=== PATIENT | female | born 1985 | race Caucasian/White ===

== ENCOUNTER 2024-09-22 09:41 | Outpatient (CLI) | payer OTHER, SELFPAY ==
[2024-09-22] VITALS (9 sets, daily range): BP systolic 118–142; BP diastolic 60–87; PULSE 62–78; O2SAT 98
[2024-09-22 10:15] LABS: Hematocrit 37.3 % (33.0-51.0); Hemoglobin* 12.6 gm/dL (12.0-16.0); Mean Corpuscular HGB Conc 34 gm/dL (32-36); Mean Corpuscular Hemoglobin 32 pg (26-34); Mean Corpuscular Volume 94 fL (80-100); Platelet Count* 198 K/uL (140-440); Red Blood Count 3.99 m/uL (4.00-5.20); White Blood Count* 9.77 K/uL (4.50-11.00)
[2024-09-22 10:16] LABS: Slide Review Reflex No
[2024-09-22 10:29] LABS: Alanine Aminotransferase* 13 U/L (4-35); Aspartate Amino Transferase* 19 U/L (12-35); Blood Urea Nitrogen* 8 mg/dL (5-24); Creatinine* 0.5 mg/dL (0.5-1.5); Estimated Glomerular Filt Rate 124 ml/min
[2024-09-22 10:39] LABS: Total Protein Urine 11 mg/dL
[2024-09-22 10:40] LABS: Creatinine Urine 71.4 mg/dL; Protein Creatinine Ratio Urine 0.15 (0-0.19)
[2024-09-22] MEDS: LABETALOL HCL 100 MG TABLET PO (12:20)
--- NOTE | 2024-09-22 12:54 | PC.OBNST ---
NST Note NST Note Start: 09/22/24 09:54 Freq: ONCE Status: Active Protocol: Document 09/22/24 12:53 BAW (Rec: 09/22/24 12:54 BAW No Response) NST Note 2 Para (# of births) 0 EDC 10/18/24 Gestational Age In Weeks & Days 36 Weeks & 2 Days High Risk Factors High Blood Pressure - Preexisting,High Blood Pressure - Gestational, Advanced Maternal Age Patient Presented with Complaint(s) of Other Other Complaints R/O PreE Reactive Yes Appropriate for Gestational Age Yes RODRIGUEZ Zambrano RNC Date 09/22/24 Reactive Yes Appropriate for Gestational Age Yes RODRIGUEZ Tucker RN Date 09/22/24 OB NST charge Yes Complete NST Note via Write Note Yes The provider's electronic signature indicates the NST is reactive/appropriate for gestational age. *Note to provider: If an addendum is required, open the patient's chart and click on the note under the Nurse/Allied Health tab.
[2024-09-23 13:22] LABS: Strep B DNA Probe Negative (Negative)
[2024-09-23 14:21] LABS: Strep B Susceptibility Needed? No
== END 2024-09-22 12:35 | disposition home or self-care (01) ==
LOC: OB OUT 09:43 → OB 09:46
PROVIDERS: PCP Family Medicine; Visit Provider Family Medicine
DX: O10.913 Unspecified pre-existing hypertension complicating pregnancy, third trimester (principal); Z3A.36 36 weeks gestation of pregnancy
CPT/HCPCS: 36415; 59025; 82565; 82570; 84156; 84450; 84460; 84520; 85027; 87081; 87653; G0463; A9270

== ENCOUNTER 2024-10-05 18:54 | Inpatient (IN) | payer OTHER, SELFPAY ==
[2024-10-05] VITALS (7 sets, daily range): BP systolic 111–153; BP diastolic 61–85; PULSE 83–108; RESP 16–20; TEMP 36.8; O2SAT 97–98; BMI 49.6
--- NOTE | 2024-10-05 19:41 | PM.OBHPLI ---
OB - H&P: HPI Labor/Induction History of Present Illness Time Seen by Provider: 19:41 Date Seen: 10/05/24 Chief Complaint: The patient is a 39 year old 2 para 0010 at 38.1 weeks gestation by LMP and consistent with 8 week ultrasound, who presents for induction of labor for Chronic hypertension on labetalol. Chief complaint: IOl for CHTN : 2 Para: 0 Indications for induction: maternal hypertension Narrative: Meagan Sahni is a 39 year old female () at [id number] who presents for IOL for chronic hypertension. has been complicated by anxiety (on buspar), chronic hypertension (started labetalol 09/22/2024 after evaluation of labs to rule out preeclampsia), BMI >40, AMA, Presumed Macrosomia (baby was measuring >97th percentile, though most recent growth was 84%). GBS negative Blood type A+ History of LEEP (2018) History of Present Dating criteria: based on LMP (consistent with 8 week ultrasound) care: good care Ultrasounds: normal 1st trimester US and normal mid trimester US complications: chronic hypertension complications comment: AMA, concern for macrosomia, BMI>40 Medical complications: psychiatric (significant anxiety) Labs Blood type: A (+) positive Rubella: immune RPR/VDLR: nonreactive GBS status: negative HBsAG: negative Review of Systems Status of ROS: Reports: 10 or more systems reviewed and unremarkable except as noted in History and below Meds Home Medications and Allergies Home Medications ?Medication ?Instructions ?Recorded ?Confirmed ?Type buspirone 10 mg tablet 10 mg PO DAILY 09/22/24 10/05/24 History docosahexaenoic acid 200 mg 200 mg PO DAILY 09/22/24 10/05/24 History capsule ( DHA) famotidine 20 mg tablet 20 mg PO BID 09/22/24 10/05/24 History labetalol 100 mg tablet 100 mg PO Q12H 10/05/24 10/05/24 History Allergies Allergy/AdvReac Type Severity Reaction Status Date / Time Sulfa (Sulfonamide Allergy Swelling Verified 09/22/24 09:57 Antibiotics) of the Eye OB - H&P: Exam Constitutional: Constitutional: no acute distress Routine HEENT Exam: Head: Present atraumatic and normal inspection ENT: Present mucous membranes moist Routine Neck Exam: Neck: Present full ROM Detailed Neck Exam: Thyroids: Thyroid: Present normal Routine Respiratory Exam: Respiratory: Present CTA bilaterally Routine Cardiovascular Exam: Cardiovascular: RRR, S1, S2 and murmur Routine Abdominal Exam: Abdominal: Present normal bowel sounds and soft; Absent tenderness Detailed Labor and Delivery Exam: Patient Gravid: Yes Dilation (cm): 0 Contraction frequency (min): 0 Comments: Patient deferred exam today. Last cervical exam was closed (fingertip at external os), thick, high (-3). Did bedside ultrasound today to confirm cephalic positioning Fetus (Single): Amniotic Membrane Status: intact Heart Rate Baseline: 135 Monitor Accelerations: Present Monitor Decelerations: None [employer] Supervisor Variability: Moderate (6-25) Routine Back/Spine/Pelvis Exam: Back/Spine: full ROM Routine Skin Exam: Present intact Routine Neurological Exam: Present alert and oriented X3 Routine Psychiatric Exam: Present normal affect (slightly anxious but appropriate for situation) OB - Problem Based A/P Additional Plan (1) Large for gestational age fetus affecting mother, antepartum: Problem details: most recent ultrasound showed 84th Percentile Status: Acute (2) Term : Problem details: 38.1 weeks gestation Status: Acute (3) Morbid obesity with BMI of 40.0-44.9, adult: Problem details: TWG was 37 lbs. Completed anesthesia consultation Status: Acute (4) Anxiety: Problem details: on Buspar. Has supportive partner. Status: Acute (5) Chronic hypertension affecting : Problem details: Has been stable since 09/22 on 100 mg labetalol BID. Status: Acute Plan: - preeclampsia labs now - q4 assessments Delivery/Labor/Induction Plan Plan: induction Induction method: per misoprostol protocol (prefers oral)
[2024-10-05 20:00] LABS: Basophils Percent Auto 0.1 % (0.0-3.0); Eosinophils Percent Auto 0.6 % (0.0-7.0); Hematocrit 35.6 % (33.0-51.0); Hemoglobin* 11.9 gm/dL (12.0-16.0); Immature Granulocytes Pct Auto 0.3 %; Lymphocytes Percent Auto 16.2 % (20-44); Mean Corpuscular HGB Conc 33 gm/dL (32-36); Mean Corpuscular Hemoglobin 32 pg (26-34); Mean Corpuscular Volume 94 fL (80-100); Monocytes Percent Auto 5.1 % (0.0-11.0); Neutrophils Percent Auto 77.7 % (42.0-72.0); Platelet Count* 202 K/uL (140-440); RDW Coefficient of Variation % 13.5 % (11.5-15.5); Red Blood Count 3.78 m/uL (4.00-5.20); White Blood Count* 12.23 K/uL (4.50-11.00)
[2024-10-05] MEDS: miSOPROStoL 25 MCG/0.25 TABLET PO ×3 (20:03→23:30)
[2024-10-05 20:51] LABS: Alanine Aminotransferase* 17 U/L (4-35); Aspartate Amino Transferase* 22 U/L (12-35); Blood Urea Nitrogen* 12 mg/dL (5-24); Creatinine* 0.6 mg/dL (0.5-1.5); Estimated Glomerular Filt Rate 118 ml/min
[2024-10-05 21:05] LABS: Slide Review Reflex No
[2024-10-05 22:30] LABS: Total Protein Urine 6 mg/dL
[2024-10-05 22:32] LABS: Creatinine Urine 125.9 mg/dL; Protein Creatinine Ratio Urine 0.05 (0-0.19)
[2024-10-06] VITALS (23 sets, daily range): BP systolic 109–139; BP diastolic 57–84; PULSE 63–108; RESP 16–18; TEMP 36.7–37.2; O2SAT 96–100
[2024-10-06] MEDS: CALCIUM CARBONATE 500 MG CHEW PO (01:15)
[2024-10-06] MEDS: miSOPROStoL 25 MCG/0.25 TABLET PO ×2 (01:31→03:41)
[2024-10-06] MEDS: LABETALOL HCL 100 MG TABLET PO ×2 (06:30→19:34)
[2024-10-06] MEDS: ONDANSETRON 2 MG/ML inj 4 MG IV (08:13)
[2024-10-06] MEDS: MORPHINE 10 MG/ML inj IM (08:30)
[2024-10-06] MEDS: hydrOXYzine pamoate 25 MG CAPSULE 100 MG PO (08:44)
[2024-10-06] MEDS: BUSPIRONE 10 MG TABLET PO (09:32)
[2024-10-06] MEDS: FAMOTIDINE 20 MG TABLET PO (09:32)
[2024-10-06] MEDS: LACTATED RINGERS 1000 ML 1,000 ML 35 ML IV (09:48)
[2024-10-06] MEDS: OXYTOCIN 30 unit/500 ML in NS 30 UNIT/500 ML BAG IVPB (09:52)
--- NOTE | 2024-10-06 17:27 | P.OBPN_ITS ---
Subjective Time Seen by Provider: 17:27 Date Seen: 10/06/24 Narrative: Patient is feeling well. Overnight, had 5 doses of oral cytotec. Cook catheter placed at 0700 as patient's mccurdy score was 3 (1cm/50%/-3). She had a lot of cramping/nausea that has since improved some. Is on low dose pitocin (rate of 7). Tolerating cramping well. Objective Exam: Resting comfortably, eating dinner Vital Signs: Last Vital Signs Temp 98.9 F 10/06/24 16:41 Pulse 83 10/06/24 16:36 Resp 18 10/06/24 03:44 BP 139/70 10/06/24 16:36 Pulse Ox 100 10/06/24 08:39 Contractions Monitor mode: External Contraction Frequency: irregular Contraction pattern: Irregular Contraction intensity: Mild Pitocin Rate (mU/min): 7 Assessment Assessment: induction ongoing Station: -3 Status: Category l Heart Rate Baseline: 135 Nursing Home Variability: Moderate (6-25) Monitor Accelerations: Present Monitor Decelerations: None Labor Progress: Cook catheter in place, low dose pitocin titrating Plan Plan: - IOL for chronic hypertension, on labetalol. - received cytotec x 5 orally overnight, had cook cathter placed this morning and is on low dose pitocin. - remove cook catheter at 7pm - titrate pitocin per regular protocol once out - AROM as able (will likely need internals). - anticipate
--- NOTE | 2024-10-06 17:30 | P.GYNPRC_ITS ---
Procedure Note Time Seen by Provider: 07:00 Date of procedure: 10/06/24 Will [facility] bill your pro fee for this procedure?: No Pre-op diagnosis: Cook catheter needed for further cervical ripening Procedure: After discussion of risks/benefits. Cook catheter placed with 60 and 60 mls of saline. Patient tolerated procedure without difficulty but did have discomfort. Nitrous was used for analgesia Chantel Polanco MD
[2024-10-07] VITALS (60 sets, daily range): BP systolic 105–154; BP diastolic 58–91; PULSE 65–96; RESP 14–16; TEMP 36.5–37.1; O2SAT 97–99
--- NOTE | 2024-10-07 05:33 | P.OBPN_ITS ---
Subjective Time Seen by Provider: 05:33 Date Seen: 10/07/24 Narrative: Patient's spouse asked me to come to bedside (I was paged at [phone]) as he did not understand why we were doing IOL. When I arrived, spouse was sleeping. Woke to discuss induction. Patient's spouse reports his physician in [place] disagrees with our plan and believes we should allow natural . We again discussed that IOL for chronic hypertension on medication is indicated at 38 weeks to decrease risk of preecl ampsia and decrease risk to baby. Patient has had cervical ripening with oral cytotec x 5, Cook catheter (x12 hours) and pitocin (currently at 16 of pitocin). Cervical check 4.5/70/-3 on last check. We discuss longer IOL is due to being prime, maternal history of LEEP, large baby. Discussed my recommendation would be continue IOL. We discussed indications for section, and that I do not see criteria at this time. Objective Exam: resting comfortably in bed, NAD Abdomen gravid ext 1+ edema bilaterally Vital Signs: Last Vital Signs Temp 98.8 F 10/07/24 01:23 Pulse 85 10/07/24 04:21 Resp 16 10/07/24 01:23 BP 135/74 10/07/24 04:21 Pulse Ox 98 10/07/24 01:24 Pelvic Exam Dilation (cm): 4.5 Effacement (%): 70 Station: -2 Contractions Monitor mode: External Contraction Frequency: 1-3 Contraction pattern: Irregular Contraction intensity: Mild Pitocin Rate (mU/min): 16 Assessment Assessment: induction ongoing Station: -3 Amniotic Membrane Status: AROM (small amount of blood tinged fluid) Status: Category l Heart Rate Baseline: 135 [facility] Variability: Moderate (6-25) Monitor Accelerations: Present Monitor Decelerations: None Plan Plan: After discussion of risks, benefits-- patient and agree to continue IOL. We discussed risk from CHTN, obesity, advanced maternal age, presumed macrosomia - AROM now of small amount of clear fluid - will hold pitocin at 16 for now. - may require internal monitors - analgesia prn (eventually desires epidural) - anticipate
[2024-10-07] MEDS: BUSPIRONE 10 MG TABLET PO (08:02)
[2024-10-07] MEDS: LABETALOL HCL 100 MG TABLET PO ×2 (08:02→19:55)
[2024-10-07] MEDS: FAMOTIDINE 20 MG TABLET PO (08:14)
[2024-10-07] MEDS: LACTATED RINGERS 1000 ML 1,000 ML 35 ML IV (13:56)
[2024-10-07] MEDS: ACETAMINOPHEN 500 MG TABLET 1000 MG PO (14:53)
--- NOTE | 2024-10-07 17:46 | P.OBPN_ITS ---
Subjective Time Seen by Provider: 17:47 Date Seen: 10/07/24 Narrative: Patient rates contractiosn 4-5. Objective Exam: resting comfortably Vital Signs: Last Vital Signs Temp 97.9 F 10/07/24 16:16 Pulse 80 10/07/24 17:30 Resp 16 10/07/24 01:23 BP 132/73 10/07/24 17:30 Pulse Ox 98 10/07/24 10:59 Pelvic Exam Dilation (cm): 5 Effacement (%): 90 Station: -2 Contractions Monitor mode: Internal (IUPC placed) Contraction pattern: Regular Contraction intensity: Moderate Pitocin Rate (mU/min): 21 Assessment Assessment: induction ongoing Station: -2 Amniotic Membrane Status: AROM (small amount of blood tinged fluid) Status: Category l Heart Rate Baseline: 135 [facility] Variability: Moderate (6-25) Monitor Accelerations: Present Monitor Decelerations: None Plan Plan: - IUPC placed. Labor is NOT adequate. No cervical change since check at 1pm. Titrate pitocin until MVU adequate. - analgesia PRN - anticipate
[2024-10-07] MEDS: OXYTOCIN 30 unit/500 ML in NS 30 UNIT/500 ML BAG 24 UNIT IVPB (20:30)
[2024-10-07 22:00] LABS: Basophils Percent Auto 0.2 % (0.0-3.0); Eosinophils Percent Auto 0.8 % (0.0-7.0); Hematocrit 36.6 % (33.0-51.0); Hemoglobin* 12.2 gm/dL (12.0-16.0); Immature Granulocytes Pct Auto 0.9 %; Lymphocytes Percent Auto 15.3 % (20-44); Mean Corpuscular HGB Conc 33 gm/dL (32-36); Mean Corpuscular Hemoglobin 31 pg (26-34); Mean Corpuscular Volume 94 fL (80-100); Monocytes Percent Auto 5.9 % (0.0-11.0); Neutrophils Percent Auto 76.9 % (42.0-72.0); Platelet Count* 199 K/uL (140-440); RDW Coefficient of Variation % 13.8 % (11.5-15.5); White Blood Count* 12.74 K/uL (4.50-11.00)
[2024-10-07] MEDS: ROPIVACAINE 0.2% 100 ml 100 ML 12 MG EPIDURAL (22:11)
[2024-10-07] MEDS: LACTATED RINGERS 1000 ML 1,000 ML 125 ML IV (22:14)
[2024-10-07] MEDS: LIDOCAINE 2% (PF) 5 ML VIAL EPIDURAL (22:15)
[2024-10-07 22:16] LABS: Slide Review Reflex No
--- NOTE | 2024-10-07 22:20 | PM.OBPNL ---
Subjective Time Seen by Provider: 21:00 Date Seen: 10/07/24 Narrative: Came to discuss plan with patient and significant other. IUPC in place. MVUs not adequate. Continuing to titrate pitocin. Baby is tolerating labor well. Patient is rating pain 5/10. Slightly more painful. She and partner want to discuss options as she has not made change from 5 cm. Objective Exam: resting comfortably, sitting on edge of bed. Vital Signs: Last Vital Signs Temp 98.4 F 10/07/24 20:51 Pulse 85 10/07/24 22:19 Resp 14 10/07/24 20:51 BP 143/85 H 10/07/24 22:19 Pulse Ox 98 10/07/24 22:19 Pelvic Exam Dilation (cm): 5 Effacement (%): 90 Station: -2 Contractions Monitor mode: Internal (IUPC placed) Contraction Frequency: 2-3 Contraction pattern: Regular Contraction intensity: Moderate Pitocin Rate (mU/min): 28 Assessment Assessment: induction ongoing Station: -2 Amniotic Membrane Status: AROM (small amount of blood tinged fluid) Status: Category l Heart Rate Baseline: 135 Monitor Accelerations: Present Monitor Decelerations: None Plan Plan: - We discussed options, indication for , ongoing work to make labor adequate - after conversation, patient requests epidural and anesthesia is called for placement - Will continue to titrate pitocin to try to get MVUs adequate - patient's may need to return to work this evening. We discussed the importance of him being present at delivery to support Crystal but also for of his son. - Will continue to support patient and significant other with questions and concerns as they arise
--- NOTE | 2024-10-07 22:31 | P.ANBPRC_ITS ---
[facility] Medical History Varicella ?B01.9 - Varicella without complication (ICD-10) Chlamydia ?A74.9 - Chlamydial infection, unspecified (ICD-10) H/O cold sores ?Z86.19 - Personal history of other infectious and parasitic diseases (ICD- 10) LUANN III (cervical intraepithelial neoplasia grade III) with severe dysplasia ?D06.9 - Carcinoma in situ of cervix, unspecified (ICD-10) H/O LEEP (loop electrosurgical excision procedure) of cervix complicating pregna ncy ?O34.40 - Maternal care for other abnormalities of cervix, unspecified trimester (ICD-10) ?Z98.890 - Other specified postprocedural states (ICD-10) Surgical History H/O colposcopy with cervical biopsy ?Z98.890 - Other specified postprocedural states (ICD-10) History of hand surgery ?Z98.890 - Other specified postprocedural states (ICD-10) History of appendectomy ?Z90.49 - Acquired absence of other specified parts of digestive tract (ICD- 10) Social History What is your current living situation?: I presently have a place to live Problems where you live: no known problems In the past 12 months, utilities in danger of being shut off: no In past 12 months, lack of transportation kept you from medical appts, meetings, work, or getting things needed for daily living: no In the past 12 mos, have been you worried that your food would run out before you had money to buy more?: never true In the past 12 mos, the food you bought just didn't last and you didn't have money to buy more?: never true Smoking Status: Former smoker How often does anyone, including family, friends and others, physically hurt you : never How often does anyone, including family, friends and others, insult or talk down to you: never How often does anyone, including family, friends and others, threaten you with harm: never How often does anyone, including family, friends and others, scream or curse at you: never Meds Home Medications and Allergies Home Medications ?Medication ?Instructions ?Recorded ?Confirmed ?Type buspirone 10 mg tablet 10 mg PO DAILY 09/22/24 10/05/24 History docosahexaenoic acid 200 mg 200 mg PO DAILY 09/22/24 10/05/24 History capsule ( DHA) famotidine 20 mg tablet 20 mg PO BID 09/22/24 10/05/24 History labetalol 100 mg tablet 100 mg PO Q12H 10/05/24 10/05/24 History Allergies Allergy/AdvReac Type Severity Reaction Status Date / Time Sulfa (Sulfonamide Allergy Swelling Verified 10/05/24 20:42 Antibiotics) of the Eye Milk Containing Products AdvReac Mild Gastrointestinal Verified 10/05/24 20:42 (Dairy) Upset mushroom AdvReac Mild Abdominal Verified 10/05/24 20:42 Pain Results Labs Labs: Laboratory Results - last 24 hr 10/07/24 21:52 WBC 12.74 H RBC 3.90 L Hgb 12.2 Hct 36.6 MCV 94 MCH 31 MCHC 33 RDW Coeff of Charley 13.8 Plt Count 199 Neut % (Auto) 76.9 H Lymph % (Auto) 15.3 L Grundy % (Auto) 5.9 Eos % (Auto) 0.8 Baso % (Auto) 0.2 Neut # (Auto) 9.80 H Lymph # (Auto) 1.90 Grundy # (Auto) 0.80 Eos # (Auto) 0.10 Baso # (Auto) 0.00 Abs Immat Gran (auto) 0.10 Imm/Tot Granulo (auto) 0.9 Vital Signs Vital Signs: Last Vital Signs Temp 98.2 F 10/07/24 22:17 Pulse 81 10/07/24 22:29 Resp 14 10/07/24 20:51 BP 140/78 H 10/07/24 22:29 Pulse Ox 99 10/07/24 22:29 Weight: 148.098 kg Height: 172.72 cm Anesthesia Procedures Epidural Insertion Patient Location: OB Start Time: :30 Stop Time: :30 Start Date: 10/07/24 Stop Date: 10/07/24 Reason for Block: procedure for pain Patient Position: sitting Performed By: Ottoniel Benavidez Preanesthetic Checklist: IV checked, risks and benefits discussed, monitors and equipment checked, pre-op evaluation, timeout performed and anesthesia consent Prep: chlorhexidine gluconate Monitoring: blood pressure monitoring, continuous pulse oximetry and heart rate Approach: midline Vertebral Space: lumbar (1-5) Epidural Technique: CONCEPCIÓN saline Needle Type: Tuohy needle Injection Technique: continuous catheter Needle gauge: 17 Needle Length (cm): 10 cm Needle Insertion Depth (cm): 10 Catheter Gauge: 19 Catheter Type: multi-orifice Catheter at skin depth (cm): 20 Test Dose Result: negative and lidocaine 1.5% with epinephrine 1 to 200,000
[2024-10-07] MEDS: ONDANSETRON 2 MG/ML inj 4 MG IV (23:05)
[2024-10-07] MEDS: PHENYLEPHRINE 100 MCG/ML SYRINGE IVP ×2 (23:07→23:18)
--- NOTE | 2024-10-07 23:43 | P.OBPN_ITS ---
Subjective Time Seen by Provider: 23:43 Date Seen: 10/07/24 Narrative: Patient has made no cervical change since noon, has not become adequate since AROM at 0530. Objective Exam: resting comfortable, epidural in place, NAD Vital Signs: Last Vital Signs Temp 98.2 F 10/07/24 22:17 Pulse 80 10/07/24 23:38 Resp 14 10/07/24 20:51 BP 115/64 10/07/24 23:38 Pulse Ox 99 10/07/24 23:39 Pelvic Exam Dilation (cm): 5 Effacement (%): 90 Station: -2 Contractions Monitor mode: Internal (IUPC placed) Contraction pattern: Regular Contraction intensity: Moderate Pitocin Rate (mU/min): 30 Assessment Assessment: induction ongoing Station: -2 Amniotic Membrane Status: AROM (small amount of blood tinged fluid) Status: Category l Heart Rate Baseline: 135 [facility] Variability: Moderate (6-25) Monitor Accelerations: Present Monitor Decelerations: None Plan Plan: - Discussed with [employer] Dr. Hoffman. Agrees that given 18 hours since AROM and not in active labor despite 30 of pitocin (MVUs not adequate, at most 180), reasonable to proceed with primary for failed IOL for chronic hypertension. - Nursing to call in OR team, Dr. Hoffman in route now. I will stay for pediatric provider.
[2024-10-08] VITALS (49 sets, daily range): BP systolic 108–144; BP diastolic 58–85; PULSE 79–101; RESP 14–18; TEMP 36.6–37.3; O2SAT 94–99
[2024-10-08] MEDS: AZITHROMYCIN 500 MG in 0.9 % SODIUM CHLORIDE 250 ml 250 ML 255 MG IVPB (00:03)
--- NOTE | 2024-10-08 00:19 | P.OBCN_ITS ---
OB - CN: HPI Date of Consult Time Seen by Provider: 00:19 Date Seen: 10/08/24 Patient: Nick Patient Consult date: 10/08/24 Requesting Physician: Chantel Polanco MD Primary Care Provider: Chantel Polanco MD Consult Narrative Reason for consult: arrest of labor Narrative: The patient is a 39 year old at 38.4 weeks gestation that was admitted to the [facility] on 10/05/24 for labor induction due to chronic hypertension on medication. She has been 5 cm since noon. She is s/p misoprostol x 5, 12 hours of cook cath, >18 hours since AROM and have been on 30u of Pitocin for several hours with no cervical change. Meagan is comfortable with an epidural but exhausted and ready to meet her baby. Discussed with patient the diagnosis of failed induction and I recommended a delivery. History of Present complications: chronic hypertension complications comment: AMA, concern for macrosomia, BMI>40 History History 2 Elective abortions Para 0 Spontaneous abortions Hx # Term Pregnancies Ectopic pregnancies Hx # Pregnancies Multiple births Number of Living Children 0 Labs Blood type: A (+) positive Rubella: immune RPR/VDLR: nonreactive GBS status: negative HBsAG: negative OB Labs: Lab Assessment Start: 10/05/24 19:05 Freq: ONCE Status: Complete Protocol: PC.OBGBS Activity Type Activity Date Activity User E-sign Co-sign Detail Recorded Client Recorded Date Recorded By Document 10/05/24 20:40 BRM No Response 10/05/24 20:40 BRM 10/05/24 20:40 Lab Assessment GBS Status negative GBS Additional Criteria None Is Patient Allergic to Penicillin? No No Treatment Needed OK Are Labs Available Yes Maternal Blood Type A Maternal RH Factor Positive Evaluate Maternal Rubella Immune Status Immune Hepatitis B Surface Antigen Negative Maternal HIV Status Negative Maternal Syphillis (RPR) Status Negative PFSH PFSH Medical History Varicella ?B01.9 - Varicella without complication (ICD-10) Chlamydia ?A74.9 - Chlamydial infection, unspecified (ICD-10) H/O cold sores ?Z86.19 - Personal history of other infectious and parasitic diseases (ICD- 10) LUANN III (cervical intraepithelial neoplasia grade III) with severe dysplasia ?D06.9 - Carcinoma in situ of cervix, unspecified (ICD-10) H/O LEEP (loop electrosurgical excision procedure) of cervix complicating ?O34.40 - Maternal care for other abnormalities of cervix, unspecified trimester (ICD-10) ?Z98.890 - Other specified postprocedural states (ICD-10) Surgical History H/O colposcopy with cervical biopsy ?Z98.890 - Other specified postprocedural states (ICD-10) History of hand surgery ?Z98.890 - Other specified postprocedural states (ICD-10) History of appendectomy ?Z90.49 - Acquired absence of other specified parts of digestive tract (ICD- 10) Social History What is your current living situation?: I presently have a place to live Problems where you live: no known problems In the past 12 months, utilities in danger of being shut off: no In past 12 months, lack of transportation kept you from medical appts, meetings, work, or getting things needed for daily living: no In the past 12 mos, have been you worried that your food would run out before you had money to buy more?: never true In the past 12 mos, the food you bought just didn't last and you didn't have money to buy more?: never true Smoking Status: Former smoker How often does anyone, including family, friends and others, physically hurt you : never How often does anyone, including family, friends and others, insult or talk down to you: never How often does anyone, including family, friends and others, threaten you with harm: never How often does anyone, including family, friends and others, scream or curse at you: never Meds Home Medications and Allergies Home Medications ?Medication ?Instructions ?Recorded ?Confirmed ?Type buspirone 10 mg tablet 10 mg PO DAILY 09/22/24 10/05/24 History docosahexaenoic acid 200 mg 200 mg PO DAILY 09/22/24 10/05/24 History capsule ( DHA) famotidine 20 mg tablet 20 mg PO BID 09/22/24 10/05/24 History labetalol 100 mg tablet 100 mg PO Q12H 10/05/24 10/05/24 History Allergies Allergy/AdvReac Type Severity Reaction Status Date / Time Sulfa (Sulfonamide Allergy Swelling Verified 10/05/24 20:42 Antibiotics) of the Eye Milk Containing Products AdvReac Mild Gastrointestinal Verified 10/05/24 20:42 (Dairy) Upset mushroom AdvReac Mild Abdominal Verified 10/05/24 20:42 Pain OB - H&P: Exam Physical Exam: Vital signs: Temp Pulse Resp BP Pulse Ox 98.2 F 96 14 123/58 L 98 10/07/24 22:17 10/08/24 00:18 10/07/24 20:51 10/08/24 00:18 10/08/24 00:19 OB - Results Labs Labs: Short CBC 10/07/24 Range/Units 21:52 WBC 12.74 H (4.50-11.00) K/uL Hgb 12.2 (12.0-16.0) gm/dL Hct 36.6 (33.0-51.0) % Plt Count 199 (140-440) K/uL OB - CN: A/P Assessment and Plan (1) Large for gestational age fetus affecting mother, antepartum: Problem details: most recent ultrasound showed 84th Percentile Status: Acute (2) Term : Problem details: 38.1 weeks gestation Status: Acute (3) Morbid obesity with BMI of 40.0-44.9, adult: Problem details: TWG was 37 lbs. Completed anesthesia consultation Status: Acute (4) Anxiety: Problem details: on Buspar. Has supportive partner. Status: Acute (5) Chronic hypertension affecting : Problem details: Has been stable since 09/22 on 100 mg labetalol BID. Status: Acute Plan CS Consent The patient was consented for section and blood. She understands that the four main categories of risk include pain, bleeding, infection, and damage to surrounding structures. Intraoperative pain will be manage with spinal anesthesia or epidural anesthesia. If that those are not effective or not appropriate for the clinical situation, general anesthesia will be administered. Immediately postop, TAP block will be performed. Throughout her recovery course, she will have on PO pain medications such as ibuprofen, Tylenol, and oxycodone. Regarding infection, she understands that we will be delivering appropriate antibiotics, however that the risk of infection following section still is approximately 5%. Risk factors that are contributing to her infection risk: high BMI and prolonged AROM. She understands that though the risk is very low that there is always a risk of damage to the bladder, uterus, ovaries, fallopian tubes, bowels, ureters, or even the fetus. She understands that most injuries can be addressed at the time of surgery, however, such an injury may require additional surgeries to fix. She understands that a section carries a risk of bleeding, and that while this bleeding can be addressed with multiple medical and surgical modalities (including hysterectomy) , that there is the possibility of needing a blood transfusion. She reports she would accept a blood transfusion understanding the low risks of infection Hepatitis, HIV as well as the risk of having an allergic reaction to the blood products. She further understands that this reaction is typically mild, however can be severe including respiratory distress and necessitating ICU-level care. Lastly, she understands that a section does increase risks for future pregnancies and deliveries including, but not limited to, the risk of uterine rupture or placenta accreta. We also reviewed postoperative care, recovery, and restrictions. She will needing lovonox after her CD while she's inpatient. - Hgb/plt: 12.2/199 - T&S: A+; Antibody negative - All questions answered and consent signed.
[2024-10-08] MEDS: CEFAZOLIN 1 GM inj 3 GM IVP (00:45)
[2024-10-08] MEDS: OXYTOCIN 10 UNIT/ML INJ IM (01:15)
[2024-10-08] MEDS: LACTATED RINGERS 1000 ML 1,000 ML 125 ML IV (01:36)
[2024-10-08] MEDS: KETOROLAC 30 MG/ML inj IVP ×4 (01:37→19:59)
[2024-10-08] MEDS: miSOPROStoL 800 MCG/4 TABLET PR (01:41)
--- NOTE | 2024-10-08 01:58 | P.OBPRC_ITS ---
Procedure Time Seen by Provider: 12:00 Date of procedure: 10/08/24 Will [facility] bill your pro fee for this procedure?: Yes Procedure Description: DELIVERY BY SECTION Date of Service: 10/08/2024 Delivery time: 0100 Summary: Admitted for IOL at 38 weeks for CHTN on labetalol, Primary Lower uterine transverse section, Pfannenstiel, Closed with suture, QBL 626 cc, Complications: Severe uterine atony without hemorrhage. Findings: Normal uterus, bilateral ovaries and tubes, 8/9, weight 3870 g. Primary Indication: 1. Failed induction of labor SVE in the OR: 4/50/-4. Significant caput but head was not engaged in the pelvis. Procedures: Primary Lower uterine transverse section Specimens Removed: Placenta Surgeon: Chary Hoffman MD Brand Development Manager Surgeon: Vicky Mendez MD Anesthesia: Epidural, TAP Report: Prophylactic antibiotic, 3g of Ancef and 500 mg of Azithromycin were given preoperatively. After arrival to the operating room patient was placed in the supine position with left lateral tilt after re-dosing of epidural anesthesia. Laparotomy A pfannenstiel incision was made through the anterior abdominal wall with #10 scalpel approximately 2 cm above the pubic symphysis. The incision was extended sharply with the #10 scalpel through the subcutaneous tissue to the level of fascia. The fascia was entered sharply with a #10 scalpel (Pfannenstiel) in the midline and extended in semi-elliptical fashion bluntly. The underlying muscles were dissected off the overlying fascia bluntly. The rectus muscles were in the midline bluntly with digits. The peritoneum was then entered bluntly. The peritoneal incision was then extended superiorly and inferiorly under direct visualization with care being taken to avoid bladder and bowel. No adhesions were noted. The peritoneal incision was enlarged bluntly by lateral traction from the surgeon's and occupational therapist assistant's hand. Martinez retractor was inserted into the abdomen. Delivery A bladder flap was not developed as the bladder was low off the lower uterine segment. A low transverse hysterotomy was made then with #10 scalpel and extended laterally and cephalad with fingers in a low transverse fashion with Manu Lora technique with care being taken to avoid injury to the fetus. The amniotic cavity (membrane) was then entered with spontaneous rupture of membrane, and the amniotic fluid was noted to be clear, fetus was delivered cephalic. With delivery of the baby, no extension was noted. Placenta was delivered spontaneously with steady traction on cord and manual separation of placenta from uterine wall. Closure Uterine cavity was cleaned after placental delivery with lap sponge x 2. Uterus was thin and boggy. The hysterotomy was closed in two layers with stitches using 0 vicryl with continuous locking stitches and 0 monocryl in a continuous non locking manner. Hemostasis was achieved as needed with electrocautery. The ovaries/tubes/uterine surface were evaluated. They were found to be normal. Uterus tone improved with uterotonics. Martinez retractor removed and hemostasis was confirmed again. Fascia was closed with running stitches using 0 vicryl. Subcutaneous layer was irrigated. Hemostasis was checked for and found to be adequate. The subcutaneous layer was closed with running 2-0 chromic sutures. The skin was closed with 3-0 vicryl subcuticular sutures . The incision was cleaned, steri-strips applied, and silver dressing placed. The procedure was considered terminate at this time. Intraoperative Complications: Severe uterine atony without hemorrhage QBL: 626 cc Uterotonics: 40u of pitocin IV bolus, 10u of pitocin IM injected into the uterus, 1g of TXA, 0.25 mg of hemabate x 1, 800 mcg of misoprostol OR UOP: 50 cc clear IVF: 1500 cc Disposition: The patient tolerated the procedure well. She was recovered in Obstetric PACU for close monitoring in stable condition, with a contracted uterus and normal transvaginal bleeding. The was sent to mother?s bedside/PACU. The placenta was sent to pathology for CHTN and unscheduled delivery. Debrief with OR team performed and specimen reviewed at the conclusion of the procedure.
[2024-10-08] MEDS: LOPERAMIDE HCL 2 MG CAPSULE 4 MG PO (02:09)
--- NOTE | 2024-10-08 02:14 | P.NB_ITS ---
Nerve Block Nerve Block Time Seen by Provider: 01:50 Date Seen: 10/08/24 Type of block requested by surgeon for post-operative analgesia: TAP Side: bilateral Time out performed: Yes Verification of patient name: Yes Verification of date of : Yes Site marking: site marked Name of person performing procedure: Ottoniel Reema Continuous monitoring Was continuous monitoring of O2 sat, B/P, monitor and storage bin tender, recorded every 15 minutes?: Yes Procedure Checklist: sterile prep, needles and gloves Ultrasound guided. Images saved: Yes Medications given in 5ml increments after negative aspiration: Marcaine %: 0.25 mL: 30 Needle gauge: 21 and Exparel mL: 10 Needle gauge: 21 Patient tolerated procedure well: Yes Additional comments: Injected in 5mL increments after negative aspiration Block Charges Block Charge (with Pro Fee): TAP Bilateral Use of Ultrasound Machine for Block: Yes- US Guidance/pain block
--- NOTE | 2024-10-08 02:14 | P.ANES_ITS ---
Anesthesia Charges Start Date/Time Anesthesia Start Date: 10/08/24 Anesthesia Start Time: 00:32 Stop Date/Time Anesthesia Stop Date: 10/08/24 Anesthesia Stop Time: 02:00 Summary Emergency: TABLE OPERATOR Coding CPT Codes CPT Codes: ANESTH CS DELIVERY - 97340 ([id number]) P3 - PATIENT W/SEVERE SYS DISEASE, QZ - TABLE OPERATOR SVC W/O SENIOR PRINCIPAL ARCHITECT BY Additional Codes: Summary - Emergency: TABLE OPERATOR ([id number])
--- NOTE | 2024-10-08 02:14 | W.ANESCHARGE ---
Anesthesia Charges Start Date/Time Anesthesia Start Date: 10/08/24 Anesthesia Start Time: 00:32 Stop Date/Time Anesthesia Stop Date: 10/08/24 Anesthesia Stop Time: 02:00 Summary Emergency: [employer] Coding CPT Codes CPT Codes: ANESTH CS DELIVERY - 33847 ([id number]) P3 - PATIENT W/SEVERE SYS DISEASE, QZ - [employer] SALES SVC W/O CREMATORIUM OPERATOR BY Additional Codes: Summary - Emergency: [employer] ([id number])
[2024-10-08 03:44] LABS: Rapid Plasma Reagin (RPR) Non Reactive (Non Reactive)
[2024-10-08] MEDS: BUSPIRONE 10 MG TABLET PO (07:50)
[2024-10-08] MEDS: LABETALOL HCL 100 MG TABLET PO ×2 (07:50→20:34)
[2024-10-08] MEDS: DOCUSATE SODIUM 100 MG CAPSULE PO (07:51)
--- NOTE | 2024-10-08 09:48 | P.OBPN_ITS ---
OB - PN:Subj Subjective Date Seen: 10/08/24 Interval history: Meagan is a 39-year-old G2 now P 1-0-1-1 woman who is status post primary low- transverse delivery on 10/08/2024 at 38 weeks, 4 days gestation. Indication for was failed induction of labor, and indication for induction of labor was chronic hypertension on labetalol. OB Problem List: 1. [facility] patient, Dr. Polanco 2. Anxiety, treated with Buspar 3. Chronic HTN treated with labetalol 4. BMI > 40 5. Advanced maternal age 8. Suspected macrosomia earlier in , with most recent EFW 84%. Narrative: Meagan is in bed when I enter. Her son is in the basinette next to her. She has been attempting and working on latch. She has not yet been out of bed. Nunes catheter still in. Hasn't eaten yet. OB - PN: Obj Exam Physical Exam: Vital signs: Temp Pulse Resp BP Pulse Ox O2 Del Method 99.1 F 96 18 113/76 96 Room Air 10/08/24 07:31 10/08/24 07:31 10/08/24 08:08 10/08/24 07:31 10/08/24 07:31 10/08/24 07:31 Narrative: General: Pleasant, no acute distress Heart: Regular rate and rhythm, no murmur or gallop Lungs: Clear to auscultation Abdomen: Soft, nontender, fundus well below umbilicus, silver dressing in place Lower extremities: 3 to 4+ pitting edema bilateral ankles. SCDs in place. Urinary Catheter Management: Urethral: Cath placed during this visit: no OB - PN: Obj Data Labs Labs: Laboratory Results - last 24 hr 10/05/24 10/07/24 19:54 21:52 WBC 12.74 H RBC 3.90 L Hgb 12.2 Hct 36.6 MCV 94 MCH 31 MCHC 33 RDW Coeff of Charley 13.8 Plt Count 199 Neut % (Auto) 76.9 H Lymph % (Auto) 15.3 L [place] % (Auto) 5.9 Eos % (Auto) 0.8 Baso % (Auto) 0.2 Neut # (Auto) 9.80 H Lymph # (Auto) 1.90 [place] # (Auto) 0.80 Eos # (Auto) 0.10 Baso # (Auto) 0.00 Abs Immat Gran (auto) 0.10 Imm/Tot Granulo (auto) 0.9 RPR Screen Non Reactive OB - PN: A/P Delivery Assessment and Plan (1) Morbid obesity with BMI of 40.0-44.9, adult: Problem details: TWG was 37 lbs. Completed anesthesia consultation Status: Acute Assessment and Plan: Continue Lovenox for prophylaxis every 12 hours during her hospital stay (2) Anxiety: Problem details: on Buspar. Has supportive partner. Status: Acute (3) Chronic hypertension affecting : Problem details: Has been stable since 09/22 on 100 mg labetalol BID. Status: Acute Assessment and Plan: She has been normotensive during her course. Continue to monitor. (4) Status post primary low transverse section: Status: Acute Assessment and Plan: Appropriate early course. Check hemoglobin tomorrow morning. Plan day: 0 Plan: routine care
[2024-10-08] MEDS: ENOXAPARIN 40 MG/0.4 ML INJ SUBCUT (14:09)
[2024-10-08] MEDS: ACETAMINOPHEN 500 MG TABLET 1000 MG PO ×2 (14:14→19:59)
[2024-10-09 00:04] VITALS: BP 104/71; PULSE 74; RESP 18; TEMP 36.9; O2SAT 98
[2024-10-09] MEDS: ENOXAPARIN 40 MG/0.4 ML INJ SUBCUT ×2 (02:46→14:24)
[2024-10-09] MEDS: ACETAMINOPHEN 500 MG TABLET 1000 MG PO ×3 (02:47→19:58)
[2024-10-09] MEDS: KETOROLAC 30 MG/ML inj IVP ×2 (02:47→08:05)
[2024-10-09 07:45] VITALS: BP 116/76; PULSE 79; RESP 16; TEMP 36.8; O2SAT 100
[2024-10-09] MEDS: BUSPIRONE 10 MG TABLET PO (08:03)
[2024-10-09] MEDS: DOCUSATE SODIUM 100 MG CAPSULE PO (08:04)
[2024-10-09] MEDS: LABETALOL HCL 100 MG TABLET PO ×2 (08:04→19:58)
--- NOTE | 2024-10-09 09:33 | P.OBPN_ITS ---
OB - PN:Subj Subjective Date Seen: 10/09/24 Interval history: Meagan is a 39-year-old G2 now P 1-0-1-1 woman who is status post primary low- transverse delivery on 10/08/2024 at 38 weeks, 4 days gestation. Indication for was failed induction of labor, and indication for induction of labor was chronic hypertension on labetalol. OB Problem List: 1. [facility] patient, Dr. Polanco 2. Anxiety, treated with Buspar 3. Chronic HTN treated with labetalol 4. BMI > 40 5. Advanced maternal age 8. Suspected macrosomia earlier in , with most recent EFW 84%. Narrative: Meagan is working on . Her son hasn't had much interest in staying latched. Otherwise, no complaints. Pain is well controlled. She is now ambulating some. Tolerating regular diet, positive flatus. No heavy bleeding. OB - PN: Obj Exam Physical Exam: Vital signs: Temp Pulse Resp BP Pulse Ox O2 Del Method 98.2 F 79 16 116/76 100 Room Air 10/09/24 07:45 10/09/24 07:45 10/09/24 07:45 10/09/24 07:45 10/09/24 07:45 10/09/24 07:45 Narrative: General: Pleasant, no acute distress Heart: Regular rate and rhythm, no murmur or gallop Lungs: Clear to auscultation bilaterally Abdomen: Soft, nontender, fundus well below umbilicus, NABS, silver dressing clean / dry / intact Lower extremities: 3+ edema bilaterally, no erythema Urinary Catheter Management: Urethral: Cath placed during this visit: no OB - PN: Obj Data Labs Labs: Laboratory Results - last 24 hr 10/09/24 07:16 Hgb 10.0 L OB - PN: A/P Delivery Assessment and Plan (1) Morbid obesity with BMI of 40.0-44.9, adult: Problem details: TWG was 37 lbs. Completed anesthesia consultation Status: Acute Assessment and Plan: Continue Lovenox for prophylaxis every 12 hours during her hospital stay (2) Anxiety: Problem details: on Buspar. Has supportive partner. Status: Acute (3) Chronic hypertension affecting : Problem details: Has been stable since 09/22 on 100 mg labetalol BID. Status: Acute Assessment and Plan: She has been normotensive during her course. Continue to monitor. (4) Status post primary low transverse section: Status: Acute Assessment and Plan: Appropriate early course. (5) Anemia associated with acute blood loss: Status: Acute Assessment and Plan: Begin ferrous sulfate 325 mg QOD. Plan day: 0 Plan: routine care
--- NOTE | 2024-10-09 09:58 | PM.ANPOST ---
Post Anesthesia Note Post Anesthesia Note Patient seen: Inpatient Respiratory Status: adequate Cardiovascular Status: adequate Mental Status: baseline Pain: adequate Temp: baseline Anesthetic awareness: N/A Complications: none Follow care: none
[2024-10-09 13:00] VITALS: BP 112/78; PULSE 79; RESP 16; TEMP 36.8; O2SAT 100
[2024-10-09] MEDS: FERROUS SULFATE 325 MG TABLET PO (14:24)
[2024-10-09] MEDS: MAGNESIUM HYDROXIDE 30 ML ORAL.SUSP PO (14:24)
[2024-10-09] MEDS: IBUPROFEN 600 MG TABLET PO ×2 (14:24→19:58)
[2024-10-09] MEDS: FAMOTIDINE 20 MG TABLET PO (14:32)
[2024-10-09 19:55] VITALS: BP 133/89; PULSE 86; RESP 16; TEMP 37; O2SAT 99
[2024-10-10] VITALS (9 sets, daily range): BP systolic 116–156; BP diastolic 80–91; PULSE 79–98; RESP 16–18; TEMP 36.7–37.1; O2SAT 97–100
[2024-10-10] MEDS: ACETAMINOPHEN 500 MG TABLET 1000 MG PO ×3 (01:59→15:56)
[2024-10-10] MEDS: IBUPROFEN 600 MG TABLET PO ×4 (02:00→23:07)
[2024-10-10] MEDS: ENOXAPARIN 40 MG/0.4 ML INJ SUBCUT ×2 (02:00→14:52)
[2024-10-10] MEDS: OXYCODONE 5 MG TABLET PO ×2 (05:56→10:07)
--- NOTE | 2024-10-10 07:18 | P.OBPN_ITS ---
Documented by User: Marian Carlos CNM 10/10/24 09:21 OB - PN:Subj Subjective Date Seen: 10/10/24 Interval history: Meagan is a 39-year-old G2 now P 1-0-1-1 woman who is status post primary low- transverse delivery on 10/08/2024 at 38 weeks, 4 days gestation. Indication for was failed induction of labor, and indication for induction of labor was chronic hypertension on labetalol. OB Problem List: 1. [facility] patient, Dr. Polanco 2. Anxiety, treated with Buspar 3. Chronic HTN treated with labetalol 4. BMI > 40 5. Advanced maternal age 8. Suspected macrosomia earlier in , with most recent EFW 84%. Narrative: Meagan is a 39 year old who was admitted for IOL due to CHTN and proceeded to have a ? after failed IOL.The patient feels well.? The pain is well controlled with current medications. Most pain is due to cramping when or pumping.? She has no new complaints.? Urinary output is adequate and she is voiding without difficulty.?Completed her 3 voids. Has a good appetite, is tolerating a general diet, is passing flatus, and has not had a bowel movement.?Is taking a stool softener and Milk of Magnesia with no results. Has moderate amount of rubra lochia.? She is ambulating well. She is and reports that the baby isn't latching. She is pumping and hope to see today. YESENIA Arevalo OB - PN: Obj Exam Physical Exam: Vital signs: Temp Pulse Resp BP Pulse Ox O2 Del Method 98.8 F 93 16 135/85 97 Room Air 10/10/24 02:38 10/10/24 02:38 10/10/24 02:38 10/10/24 02:38 10/10/24 02:38 10/10/24 02:38 Narrative: GENERAL APPEARANCE:? normal affect, alert, no distress MOOD:? appropriate CHEST:? clear to auscultation HEART:? regular rate and rhythm ABDOMEN:? soft, non-tender the uterine fundus is At Umbilicus, Midline and is appropriate for the stage of recovery. Bowel sounds present EXTREMITIES:? normal and mild edema Incision: Silvadene dressing remains in place, no shadowing, drainage or odor noted. Urinary Catheter Management: Urethral: Cath placed during this visit: no OB - PN: Obj Data Labs Labs: Laboratory Results - last 24 hr 10/09/24 07:16 Hgb 10.0 L OB - PN: A/P Delivery Assessment and Plan (1) Status post primary low transverse section: Status: Acute (2) Lactating mother: Status: Acute (3) Morbid obesity with BMI of 40.0-44.9, adult: Problem details: TWG was 37 lbs. Completed anesthesia consultation Status: Acute (4) Anxiety: Problem details: on Buspar. Has supportive partner. Status: Acute (5) Chronic hypertension affecting : Problem details: Has been stable since 09/22 on 100 mg labetalol BID. Status: Acute (6) Anemia associated with acute blood loss: Status: Acute Plan Comments: PP day #2 Routine care Should see today Anticipate discharge Tomorrow, 10/11/24, so she can receive more support today Documented by User: Cheyanne Sykes 10/10/24 08:14 OB - PN:Subj Subjective Interval history: Meagan is a 39-year-old G2 now P 1-0-1-1 woman who is status post primary low- transverse delivery on 10/08/2024 at 38 weeks, 4 days gestation. Indication for was failed induction of labor, and indication for induction of labor was chronic hypertension on labetalol. Has been normotensive PP. OB Problem List: 1. [facility] patient, Dr. Polanco 2. Anxiety, treated with Buspar 3. Chronic HTN treated with labetalol 4. BMI > 40 5. Advanced maternal age 8. Suspected macrosomia earlier in , with most recent EFW 84%. Patient comments OB post-: pain well controlled, tolerating diet and flatus present infant status: ( to visit today) and doing well [place] feeding status: exclusively Narrative: Meagan is a 39 year old who was admitted for IOL due to CHTN and proceeded to have a ? after failed IOL.The patient feels well.? The pain is well controlled with current medications. Most pain is due to cramping when or pumping.? She has no new complaints.? Urinary output is adequate and she is voiding without difficulty.?Completed her 3 voids. Has a good appetite, is tolerating a general diet, is passing flatus, bowel sounds active and has not had a bowel movement.? Has moderate amount of rubra lochia.? She is ambulating well. She is and reports it is going well. YESENIA Arevalo OB - PN: Obj Exam Physical Exam: Narrative: GENERAL APPEARANCE:? normal affect, alert, no distress MOOD:? appropriate CHEST:? clear to auscultation HEART:? regular rate and rhythm ABDOMEN:? soft, non-tender the uterine fundus is At Umbilicus, Midline and is appropriate for the stage of recovery. EXTREMITIES:? normal and [] edema Incision: Dressing remains in place, no shadowing, drainage or odor noted. Urinary Catheter Management: Urethral: Cath placed during this visit: no OB - PN: A/P Delivery Assessment and Plan (1) Status post primary low transverse section: Start date: 10/10/24 Status: Acute (2) Lactating mother: Status: Acute (3) Morbid obesity with BMI of 40.0-44.9, adult: Problem details: TWG was 37 lbs. Completed anesthesia consultation Status: Acute (4) Anxiety: Problem details: on Buspar. Has supportive partner. Status: Acute (5) Chronic hypertension affecting : Problem details: Has been stable since 09/22 on 100 mg labetalol BID. Status: Acute (6) Anemia associated with acute blood loss: Status: Acute Plan Comments: PP day #2 Routine care Should see today Anticipate discharge Tomorrow, 10/11/24
[2024-10-10] MEDS: FAMOTIDINE 20 MG TABLET PO ×2 (08:08→20:09)
[2024-10-10] MEDS: BUSPIRONE 10 MG TABLET PO (08:09)
[2024-10-10] MEDS: LABETALOL HCL 100 MG TABLET PO ×2 (08:09→12:15)
[2024-10-10] MEDS: DOCUSATE SODIUM 100 MG CAPSULE PO (08:09)
[2024-10-10] MEDS: LABETALOL HCL 100 MG TABLET 200 MG PO (20:08)
[2024-10-11 01:49] VITALS: BP 142/84; PULSE 94; RESP 16; TEMP 36.8; O2SAT 98
[2024-10-11] MEDS: ACETAMINOPHEN 500 MG TABLET 1000 MG PO ×2 (01:54→08:15)
[2024-10-11] MEDS: ENOXAPARIN 40 MG/0.4 ML INJ SUBCUT (01:54)
[2024-10-11 02:13] VITALS: BP 136/87
[2024-10-11 04:56] VITALS: BP 121/82; PULSE 100; RESP 18; TEMP 36.8; O2SAT 98
[2024-10-11] MEDS: IBUPROFEN 600 MG TABLET PO (05:54)
[2024-10-11 07:42] VITALS: BP 126/84; PULSE 85; RESP 16; TEMP 37.1; O2SAT 97
--- NOTE | 2024-10-11 07:57 | PM.OBDSVD1 ---
DS: Providers Provider Date Seen: 10/11/24 Date of admission: 10/05/24 18:54 Primary care physician: Chantel Polanco MD Admitting Clinician: Chantel Polanco MD Attending Physician on discharge: Alvaro Quiros CNM Date of Discharge: 10/11/24 DS: Diagnosis Discharge Diagnosis (1) Anemia associated with acute blood loss: Status: Acute (2) Lactating mother: Status: Acute (3) Status post primary low transverse section: Status: Acute (4) Chronic hypertension affecting : Status: Acute Problem details: Has been stable since 09/22 on 100 mg labetalol BID. (5) Morbid obesity with BMI of 40.0-44.9, adult: Status: Acute Problem details: TWG was 37 lbs. Completed anesthesia consultation (6) Anxiety: Status: Acute Problem details: on Buspar. Has supportive partner. Exam Narrative: Exam Narrative: VSS. ?Afebrile GENERAL APPEARANCE: ?normal affect, alert, no distress MOOD: ?appropriate HEENT: normocephalic, neck supple, full ROM CHEST: ?Symmetrical chest wall movement. ?Normal respiratory effort. ?Clear to auscultation HEART: ?regular rate and rhythm ABDOMEN: ?soft, non-tender. Uterine fundus is firm, at Umbilicus, Midline and is appropriate for the stage of recovery. ?Bowel sounds present. EXTREMITIES: ?normal and 2+ edema SKIN: warm, dry. ?Silvadene Dressing on, clean/dry/intact ? ?No signs of infection noted. Const: Vital Signs, click to edit/add: Vital Signs - 24 hr 10/10/24 08:15 10/10/24 08:30 10/10/24 11:48 Temperature 98.0 F 98.1 F Pulse Rate [Pulse Oximeter] 88 98 Respiratory Rate 16 16 Blood Pressure [Le ft Arm] 140/86 H 138/91 H 138/82 Pulse Oximetry 98 97 Oxygen Delivery Me thod Room Air Room Air 10/10/24 15:00 10/10/24 15:34 10/10/24 19:58 Temperature 98.5 F 98.1 F Pulse Rate [Pulse Oximeter] 79 87 92 Respiratory Rate 16 18 Blood Pressure [Le ft Arm] 131/83 117/80 156/85 H Pulse Oximetry 98 98 100 Oxygen Delivery Me thod Room Air Room Air Room Air 10/10/24 20:24 10/10/24 23:04 10/11/24 01:49 Temperature 98.1 F 98.2 F Pulse Rate [Pulse Oximeter] 93 94 Respiratory Rate 18 16 Blood Pressure [Le ft Arm] 132/85 116/80 142/84 H Pulse Oximetry 98 98 Oxygen Delivery Me thod Nasal Cannula Room Air 10/11/24 02:13 10/11/24 04:56 10/11/24 07:42 Temperature 98.2 F 98.8 F Pulse Rate [Pulse Oximeter] 100 85 Respiratory Rate 18 16 Blood Pressure [Le ft Arm] 136/87 121/82 126/84 Pulse Oximetry 98 97 Oxygen Delivery Me thod Room Air Room Air Documenting provider has reviewed patient's vital signs: yes OB - DS: Summary Hospital Course Hospital Course: Meagan is a 39 y.o. who was admitted to [facility] for induction of labor. ?She had an uncomplicated .?The patient feels well. ?The pain is well controlled with current medications. ?She has no new complaints. ?She is breast and bottle feeding and reports things are going well.?She plans on but also will be using WIC so may use some formula as well. the patient has done well.? Vitals have been stable.? She has remained afebrile.? Has a good appetite, is tolerating a general diet. ?She is voiding without difficulty.? She is passing gas and has not had a bowel movement.? She is ambulating and denies any dizziness.? Has Small amount of rubra lochia. ?She is undecided on what she is planning for prevention. Peripartum Data delivery method: Primary C/S; Labored Laceration description: None Procedures: Procedures Operation Date: 10/08/24 12:30 Actual Procedure Side Surgeon p primary Section Chary Dario Hoffman MD complications: none Infant Gender: Male Infant Discharge Plan: Home Status at Discharge Functional status at discharge: independent ambulation Overall status at discharge: patient is progressing back to baseline Time Spent with Patient Time attestation: Total time spent providing and/or coordinating discharge services: Time spent: Less than 30 minutes Discharge Plan Discharge Disposition: Home, Self-Care Date of Admission: 10/05/24 18:54 Attending Provider on Discharge: Alvaro Quiros Primary Care Provider: Chantel Polanco Condition: Stable Anticipated Discharge Date/Time: 10/11/24 12:00 Discharge Medications: New acetaminophen 500 mg Tablet 1,000 mg PO Q6H PRN (Reason: Pain) Qty: 0 0RF ferrous sulfate 325 mg (65 mg iron) Tablet 325 mg PO Q48H Qty: 60 0RF docusate sodium 100 mg Capsule 100 mg PO DAILY Qty: 90 1RF ibuprofen 600 mg Tablet 600 mg PO Q6H PRN (Reason: Pain) Qty: 60 0RF labetalol 100 mg Tablet 200 mg PO BID Qty: 60 0RF oxycodone 5 mg Tablet 5 - 10 mg PO Q4H PRN (Reason: Pain) Qty: 10 0RF Continued famotidine 20 mg tablet 20 mg PO BID buspirone 10 mg tablet 10 mg PO DAILY DHA 200 mg capsule 200 mg PO DAILY Discontinued labetalol 100 mg tablet 100 mg PO Q12H Discharge Orders: Discharge Order (Routine); Ordered 10/11/24 Ordered By: Alvaro Quiros Patient Education: OB Over the Counter Medication Information, OB /Breast Feeding Additional Instructions: Discharge instructions were reviewed with the patient including signs and symptoms of infection and home going medications Lifting Restrictions: 20 pounds for 6 weeks No not submerge incision under water X 2 weeks? Nothing vaginally for 6 weeks: no tampons or intercourse Do not drive while taking narcotic pain medication(s) Off Work or School for 8 weeks Symptoms to report to doctor: Bleeding that saturates more than one pad per hour Passing clots larger than the size of a golf ball Pain not relieved by prescribed medication Fever above 100.4 degrees Fahrenheit A foul vaginal odor Difficulty in emotions, mood, and functions Thoughts of hurting yourself and/or Painful, reddened area in your breast Any drainage, redness, or tenderness in your IV/epidural site Severe headache that doesn't improve after taking medications Changes in vision, including temporary loss of vision, blurred vision, and/or light sensitivity Upper abdominal pain (usually under ribs on the right side) Decrease in urination or painful, frequent urinating Chest pain Shortness of breath Tenderness or pain with redness and/swelling in the calf(s) of your leg Follow Up with Dr Zant for a BP check?10/13/24. Call with BP greater than or equal to 150/100 2-week visit: incision check, discuss feeding concerns, review control options and screen for anxiety/depression. 6-week visit for an annual exam. consultation services are available to all mothers and babies for the first year after delivery.? To make an appointment, please call [phone]. Activity Level: Activity as Tolerated Discharge Diet: Regular Follow Up Appointments: Chantel Polanco MD [Primary Care Provider] - [facility] [Provider Group] Forms: [employer] Info Instructions
[2024-10-11] MEDS: BUSPIRONE 10 MG TABLET PO (08:15)
[2024-10-11] MEDS: DOCUSATE SODIUM 100 MG CAPSULE PO (08:15)
[2024-10-11] MEDS: OXYCODONE 5 MG TABLET PO (08:16)
[2024-10-11] MEDS: LABETALOL HCL 100 MG TABLET 200 MG PO (08:16)
[2024-10-11] MEDS: FAMOTIDINE 20 MG TABLET PO (08:16)
[2024-10-11] MEDS: FERROUS SULFATE 325 MG TABLET PO (11:03)
== END 2024-10-11 12:23 | disposition home or self-care (01) | DRG 787 ==
PROVIDERS: Obstetrics & Gynecology; Admitting Provider Family Medicine; PCP Family Medicine; Visit Provider Obstetrics & Gynecology
PROC: (CPT 59514; principal; 2024-10-08 12:30)
DX: O10.92 Unspecified pre-existing hypertension complicating childbirth (principal); D62 Acute posthemorrhagic anemia; Z3A.38 38 weeks gestation of pregnancy; Z37.0 Single live birth; O99.214 Obesity complicating childbirth; E66.01 Morbid (severe) obesity due to excess calories; O99.344 Other mental disorders complicating childbirth; F41.9 Anxiety disorder, unspecified; O36.63X0 Maternal care for excessive fetal growth, third trimester, not applicable or unspecified; O90.81 Anemia of the puerperium; O62.2 Other uterine inertia; O61.9 Failed induction of labor, unspecified; G89.18 Other acute postprocedural pain
CPT/HCPCS: 01961; 01967; 36415; 59200; 64488; 76815; 76942; 82565; 82570; 83735; 84156; 84450; 84460; 84520; 85018; 85025; 85027; 86592; 86850; 86900; 86901; 88307; 99140; A4314; A9270; C1726; J0456; J0665; J0666; J0690; J1100; J1200; J1650; J1885; J2270; J2274; J2371; J2405; J2590; J2765; J2795; J7050; J7120